=== PATIENT | female | born 1985 | race Caucasian/White ===

== ENCOUNTER 2018-11-14 21:15 | Emergency (ER) | payer MEDICAID ==
[2018-11-14 22:33] LABS: URINE PH (Dip) POC 7.5 (5.0-8.5)
[2018-11-14 22:33] LABS: URINE BLOOD (Dip) POC Negative (NEGATIVE); URINE GLUCOSE (Dip) POC Negative (NEGATIVE); URINE KETONES (Dip) POC Negative (NEGATIVE); URINE LEUKOCYTE EST (Dip) POC Negative (NEGATIVE); URINE NITRITE (Dip) POC Negative (NEGATIVE); URINE TOTAL PROTEIN POC Negative (NEGATIVE)
[2018-11-14] MEDS: IBUPROFEN 600 MG TAB PO (23:10)
== END 2018-11-14 23:23 | disposition home or self-care (01) ==
LOC: FTE 21:15
DX: M54.5 Low back pain (principal); R30.0 Dysuria
CPT/HCPCS: 81003; 81025; 87086; 99283